=== PATIENT | female | born 1970 ===

== ENCOUNTER → 2019-08-30 06:00 | Outpatient (CLI) | payer OTHER ==
[~2019-08-30 06:00] MED LIST: BENADRY PO
== END | disposition home or self-care (01) ==
LOC: LAB 06:00 → ADM 10:15 → CIR.AMB 09-03 10:00 → ADM 09-03 10:15 → EDSTATUS 09-03 10:15
DX: R19.09 Other intra-abdominal and pelvic swelling, mass and lump (principal)